=== PATIENT | female | born 1995 | race Two or more races ===

== ENCOUNTER 2021-12-20 21:26 | Emergency (ER) | payer SELFPAY ==
[~2021-12-20] VITALS: Ht 162.6 cm; Wt 79.8 kg
[2021-12-20 22:08] VITALS: BP 131/76
[2021-12-20] MEDS ORDERED: AMOX500T3 PO (23:35)
== END 2021-12-20 23:40 | disposition home or self-care (01) ==
LOC: ER 21:26
DX: J02.9 Acute pharyngitis, unspecified (principal); Z88.8 Allergy status to other drugs, medicaments and biological substances